=== PATIENT | male | born 1980 | race Caucasian/White ===

== ENCOUNTER 2023-11-03 17:16 | Emergency (ER) | payer MEDICAID ==
[~2023-11-03] VITALS: Ht 167.6 cm; Wt 73.0 kg
[2023-11-03 17:20] VITALS: O2SAT 98
[2023-11-03] MEDS ORDERED: LIDOCAINE HCL/EPINEPHRINE 1%-EPI 1:100,000 20 ML VIAL INFIL ONE (18:45)
[2023-11-03] MEDS: TETANUS, DIPHTHERIA, PERTUSSIS VAC/PF 0.5ML (>10YR OLD) IM ONE (19:08)
[2023-11-03 19:21] VITALS: BP 124/82; PULSE 88; RESP 15; TEMP 98.6
[2023-11-03] MEDS: IBUPROFEN 600MG TABLET PO ONE (19:21)
[2023-11-03] MEDS: LIDOCAINE HCL 1% 20ML VIAL (Pyxis) INJ INFIL ONE (19:21)
[2023-11-03] MEDS: ACETAMINOPHEN 325MG TABLET PO ONE (19:21)
[2023-11-03] MEDS ORDERED: TOPUD MT (20:20)
[2023-11-03] MEDS ORDERED: IBUP-2029 MT (20:20)
== END 2023-11-03 20:40 | disposition home or self-care (01) ==
LOC: ER 17:16
DX: S61.412A Laceration without foreign body of left hand, initial encounter (principal); W27.8XXA Contact with other nonpowered hand tool, initial encounter; Y93.89 Activity, other specified; Y92.89 Other specified places as the place of occurrence of the external cause; Y99.8 Other external cause status
CPT/HCPCS: 99283; 90715; 12002; 90471; J3490